=== PATIENT | male | born 1985 | race Caucasian/White ===

== ENCOUNTER 2017-09-10 03:59 | Emergency (ER) | payer OTHER ==
[2017-09-10] MEDS: TETRACAINE 0.5% OPHTH SOLN 4ML OS (06:15)
[2017-09-10] MEDS: LISSAMINE GREEN OPHTH 1.5 MG STRIP OS (06:15)
[2017-09-10] MEDS: ERYTHROMYCIN OPHTH OINT OS (06:30)
== END 2017-09-10 06:46 | disposition home or self-care (01) ==
LOC: M ED 03:59
DX: H57.12 Ocular pain, left eye (principal)
CPT/HCPCS: 99283